=== PATIENT | female | born 1975 | race Caucasian/White ===

== ENCOUNTER 2018-11-02 09:12 | Emergency (ER) | payer BC ==
--- NOTE | 2018-11-02 09:41 | RAD REPORT ---
EXAM DESCRIPTION: CT - Ct Stroke Brain Wo Cont - 11/02/2018 9:35 am CLINICAL HISTORY: WEAKNESS CVA symptomology COMPARISON: HEAD BRAIN W O CONTRAST dated 05/10/2012 TECHNIQUE: All CT scans are performed using dose optimization technique as appropriate and may inclu de automated exposure control or mA/KV adjustment according to patient size. FINDINGS: No intracranial hemorrhage, hydrocephalus or extra-axial fluid collection.No areas of brai n edema or evidence of midline shift. The paranasal sinuses and mastoids are essentially clear. The calvarium is intact. IMPRESSION: No acute intracranial abnormality. If there is continued clinical concern for CVA, MR i maging of the brain would be recommended. The findings were discussed with ER physician Dr. Maya on 11/02/2017 at 9:36 a.m. by telephone.
[2018-11-02 09:50] LABS: Absolute Lymphocytes (CBC) 1.8 K/uL (0.7-4.9); Absolute Monocytes 0.4 K/uL (0.1-1.3); Absolute Neutrophil 3.4 K/uL (1.8-8.0); Basophils % 0.4 % (0-1.3); Eosinophils % 2.5 % (0-4.4); Hematocrit 43.5 % (36.0-45.0); Lymphocytes % 31.9 % (15.3-44.8); MPV 6.8 fL (7.6-11.3); Monocytes % 6.3 % (3.3-12.3); RBC Red Blood Cell Count 4.83 M/uL (3.86-4.86)
--- NOTE | 2018-11-02 09:57 | RAD REPORT ---
EXAM DESCRIPTION: RAD - Chest Single View - 11/02/2018 9:51 am CLINICAL HISTORY: Weakness Chest pain. COMPARISON: No comparisons FINDINGS: Portable technique limits examination quality. The lungs are grossly clear. The heart is normal in size. No displaced fractures. IMPRESSION: No acute intrathoracic process suspected.
[2018-11-02] MEDS ORDERED: ASPIRIN 81 MG CHEWABLE TABLET ONE (09:59)
--- NOTE | 2018-11-02 10:09 | ER ---
Nurse's Notes [facility] Name: Mackenzie Madrigal Age: 43 yrs Sex: Female : 1975 Arrival Date: 11/02/2018 Time: 09:14 Bed 13 Private MD: Mayda Mendieta Diagnosis: Sharma's palsy Presentation: 11/02 09:25 Presenting complaint: Patient states: woke up around 230 am and felt like the right iw side of her dace was numb and tingly, went back to sleep, woke up at 530 and looked at her face in the mirror, right side of face had an obvious droop, took her kids to school and facial droop got better but still felt a bit "off", also states she feels mild weakness in right hand, pt presents to ER negative arm drift. mild facial asymmetry on right. Last known well was 11 pm last night. 09:25 Method Of Arrival: Wheelchair iw 09:33 Transition of care: patient was not received from another setting of care. No acute iw neurological deficit is noted. Pre-hospital glucose is not applicable to this patient. Onset of symptoms was November 01, 2018 at 23:00. Risk Assessment: Do you want to hurt yourself or someone else? Patient reports no desire to harm self or others. Initial Sepsis Screen: Does the patient meet any 2 criteria? No. Patient's initial sepsis screen is negative. Does the patient have a suspected source of infection? No. Patient's initial sepsis screen is negative. Care prior to arrival: None. 09:33 Acuity: GONZALO 2 iw Triage Assessment: 09:57 The onset of the patients symptoms was November 02, 2018 at 03:00. 09:57 General: Appears in no apparent distress. comfortable. Neuro: Reports weakness in face. 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 - Social history:: Smoking status: Patient/guardian denies using tobacco, Patient uses alcohol. - Ebola Screening: : Patient negative for fever greater than or equal to 101.5 degrees Fahrenheit, and additional compatible Ebola Virus Disease symptoms Patient denies exposure to infectious person Patient denies travel to an Ebola-affected area in the 21 days before illness onset. Screenin:53 Abuse screen: Denies threats or abuse. Denies injuries from another. Nutritional hj screening: No deficits noted. Tuberculosis screening: No symptoms or risk factors identified. Fall Risk None identified. Assessment: 09:23 VAN Scoring: Arm Drift: Patients demonstrates NO arm weakness. Patient is VAN Negative. iw 09:30 Reassessment: pt transported to CT via stretcher, with Guillermo GALEANO. iw 09:42 General: Appears in no apparent distress. uncomfortable, Behavior is calm, cooperative, hj appropriate for age. Pain: Complains of pain in head. Neuro: Level of Consciousness is awake, alert, obeys commands, Oriented to person, place, time, situation, Appropriate for age. Cardiovascular: Capillary refill < 3 seconds Patient's skin is warm and dry. Respiratory: Airway is patent Respiratory effort is even, unlabored, Respiratory pattern is regular, symmetrical. GI: No signs and/or symptoms were reported involving the gastrointestinal system. : No signs and/or symptoms were reported regarding the genitourinary system. EENT: No signs and/or symptoms were reported regarding the EENT system. Derm: No signs and/or symptoms reported regarding the dermatologic system. Musculoskeletal: Reports facial pain and droop. 09:42 T-PA (Activase) Screening: Contraindications: Patient reports onset of signs and iw symptoms of stroke greater than 6 hours ago: Yes. 09:51 Patient has been NPO before screening. The patient is alert, and able to follow commands. The patient does not exhibit slurred or garbled speech. The patient is not exhibiting difficulty speaking. The patient is exhibiting difficulty understanding words. The patient is able to swallow own secretions with no drooling or need for suction. Patient tolerated one teaspoon of water. No drooling, immediate coughing, gurgling, or clearing of the throat was noted. The patient passed the bedside swallow screening. Oral medications may be given as ordered. Contact Physician for further diet orders. 09:53 Provider notified of bedside swallow screening results: Guillermo Trivedi RN. hj 10:53 Reassessment: Patient and/or family updated on plan of care and expected duration. Pain hj level reassessed. Patient is alert, oriented x 3, equal unlabored respirations, skin warm/dry/pink. Patient states feeling better. Patient states symptoms have improved. Vital Signs: 09:40 BP 148 / 97; Pulse 77; Resp 18; Temp 98.1(TE); Pulse Ox 99% on R/A; Weight 88.45 kg; hj Height 5 ft. 5 in. (165.10 cm); 10:04 BP 139 / 83; Pulse 71; Resp 17; Pulse Ox 100% on R/A; pc1 10:53 BP 130 / 69; Pulse 65; Resp 18; Pulse Ox 100% on R/A; hj 09:40 Body Mass Index 32.45 (88.45 kg, 165.10 cm) hj NIH Stroke Scale Scores: 09:56 NIHSS Score: 2 hj ED Course: 09:14 Patient arrived in ED. dl4 09:14 Mayda Mendieta MD is Private Physician. dl4 09:19 Dario Maya MD is Attending Physician. kdr 09:23 Guillermo Trivedi, RN is Primary Nurse. hj 09:34 Triage completed. iw 09:34 Arm band placed on. iw 09:35 CT Stroke Brain w/o Contrast In Process Unspecified. EDMS 09:46 Inserted saline lock: 20 gauge in right antecubital area, using aseptic technique. pc1 09:46 Initial lab(s) drawn, by ED staff, sent to lab. pc1 09:50 X-ray completed. Portable x-ray completed in exam room. Patient tolerated procedure jb2 well. 09:51 Stroke CXR 1 View In Process Unspecified. EDMS 09:57 Patient has correct armband on for positive identification. Placed in gown. Bed in low hj position. Call light in reach. Side rails up X 1. 10:07 Mayda Mendieta MD is Referral Physician. kdr 10:08 Damon Mendiola MD is Referral Physician. kdr 10:54 No provider procedures requiring assistance completed. IV discontinued, intact, hj bleeding controlled, No redness/swelling at site. Pressure dressing applied. Administered Medications: 09:51 Drug: Aspirin Chewable Tablet 324 mg Route: PO; pc1 10:56 Follow up: Response: No adverse reaction Point of Care Testing: Blood Glucose: 09:45 Blood Glucose: 103 mg/dL; pc1 Ranges: Outcome: 10:08 Discharge ordered by . kdr 10:54 Attestation : i agree with the assessment and notes of Giancarlo Lopez RN. hj 10:54 Discharged to home ambulatory. 10:54 Condition: stable 10:54 Discharge instructions given to patient, Instructed on discharge instructions, follow up and referral plans. medication usage, Demonstrated understanding of instructions, follow-up care, medications, Prescriptions given X 3. 11:04 Patient left the ED. NIH Stroke Scale - NIH Stroke Score Date: 11/02/2018 Time: 09:56 Total Score = 2 1a. Level of Consciousness (LOC) - 0(Alert) 1b. Level of Consciousness (LOC) (Year \\T\\ Age) - 0(Both) 1c. LOC Commands (Open \\T\\ Closes Eyes/Shower Attendant) - 0(Both) 2. Best Gaze (Lateral Gaze Paresis) - 0(Normal) 3. Visual Field Loss - 0(No visual loss) 4. Facial Palsy - 2(Partial paralysis) 5a. Left Arm: Motor (10-second hold) - 0(No drift) 5b. Right Arm: Motor (10-second hold) - 0(No drift) 6a. Left Leg: Motor (5-second hold - always test supine) - 0(No drift) 6b. Right Leg: Motor (5-second hold - always test supine) - 0(No drift) 7. Limb Ataxia (finger/nose \\T\\ heel/sáncehz - test with eyes open) - 0(Absent) 8. Sensory Loss (pinprick arms/legs/face) - 0(Normal) 9. Best Language: Aphasia (description/naming/reading) - 0(No aphasia) 10. Dysarthria (speech clarity - read or repeat words) - 0(Normal) 11. Extinction and Inattention (visual/tactile/auditory/spatial/personal) - 0(No abnormality) Initials: Signatures: Dispatcher [employer] Dario Prieto MD MD kdr Buechter, Jesse jb2 Jessica Dominguez, WALESKA RN Guillermo Welch RN RN Conner Nevarez dl4 Giancarlo Lopez [facility]
--- NOTE | 2018-11-02 10:10 | EDPHYS ---
Physician Documentation [facility] Name: Mackenzie Madrigal Age: 43 yrs Sex: Female : 1975 Arrival Date: 11/02/2018 Time: 09:14 Bed 13 Private MD: Mayda Mendieta ED Physician Dario Maya HPI: 11/02 09:28 This 43 yrs old Female presents to ER via Unassigned with complaints of S/S kdr of Possible Stroke. 09:28 The patient's problem is reported as a facial droop, on right, paresthesias, in right kdr side of face, weakness, in the right upper extremity, in the right side of face. Onset: The symptoms/episode began/occurred Last known well was about 11:00 PM yesterday evening. She awoke at least once during the night with apparent right face numbness and at one point she felt that her right face was drooping. Duration: This was a single incident, The episode is continuous, the symptoms became persistent just prior to arrival, Waxes and wanes. Context: the episode(s) was witnessed, by no one, symptoms became apparent upon waking, As noted above, occurred at home, occurred while the patient was asleep, Possible contributing factors include: None - No BCP or tobacco . The symptoms are alleviated by nothing. The symptoms are aggravated by nothing. 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 She had an episode of palpitations last week but none since. She can normally resolve these episodes with Valsalva . Severity of symptoms: At their worst the symptoms were mild in the emergency department the symptoms have improved mildly. Patient's baseline: Neuro: alert and fully oriented, Motor: no deficits, Ambulation: walks without assistance, Speech: normal, The patient has a previous history of. The patient has not experienced similar symptoms in the past. The patient has not recently seen a physician. 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 - Social history:: Smoking status: Patient/guardian denies using tobacco, Patient uses alcohol. - Ebola Screening: : Patient negative for fever greater than or equal to 101.5 degrees Fahrenheit, and additional compatible Ebola Virus Disease symptoms Patient denies exposure to infectious person Patient denies travel to an Ebola-affected area in the 21 days before illness onset. ROS: 09:28 Constitutional: Negative for fever, chills, and weight loss, Eyes: Negative for injury, kdr pain, redness, and discharge, ENT: Negative for injury, pain, and discharge, Neck: Negative for injury, pain, and swelling, Cardiovascular: Negative for chest pain, palpitations, and edema, Respiratory: Negative for shortness of breath, cough, wheezing, and pleuritic chest pain, Abdomen/GI: Negative for abdominal pain, nausea, vomiting, diarrhea, and constipation, Back: Negative for injury and pain, : Negative for injury, bleeding, discharge, and swelling, MS/Extremity: Negative for injury and deformity, Skin: Negative for injury, rash, and discoloration, Psych: Negative for depression, anxiety, suicide ideation, homicidal ideation, and hallucinations, Allergy/Immunology: Negative for hives, rash, and allergies, Endocrine: Negative for neck swelling, polydipsia, polyuria, polyphagia, and marked weight changes, Hematologic/Lymphatic: Negative for swollen nodes, abnormal bleeding, and unusual bruising. 09:28 Neuro: Positive for numbness, speech changes, tingling, weakness, Negative for altered mental status, dizziness, gait disturbance, headache, hearing loss, loss of consciousness, seizure activity, syncope, near syncope, visual changes. Exam: 09:28 Constitutional: This is a well developed, well nourished patient who is awake, alert, kdr and in no acute distress. Head/Face: Normocephalic, atraumatic. The right face seems to have a sliight droop Eyes: Pupils equal round and reactive to light, extra-ocular motions intact. Lids and lashes normal. Conjunctiva and sclera are non-icteric and not injected. Cornea within normal limits. Periorbital areas with no swelling, redness, or edema. ENT: Nares patent. No nasal discharge, no septal abnormalities noted. Tympanic membranes are normal and external auditory canals are clear. Oropharynx with no redness, swelling, or masses, exudates, or evidence of obstruction, uvula midline. Mucous membranes moist. Neck: Trachea midline, no thyromegaly or masses palpated, and no cervical lymphadenopathy. Supple, full range of motion without nuchal rigidity, or vertebral point tenderness. No Meningismus. Chest/axilla: Normal chest wall appearance and motion. Nontender with no deformity. No lesions are appreciated. Cardiovascular: Regular rate and rhythm with a normal S1 and S2. No gallops, murmurs, or rubs. Normal PMI, no JVD. No pulse deficits. Respiratory: Lungs have equal breath sounds bilaterally, clear to auscultation and percussion. No rales, rhonchi or wheezes noted. No increased work of breathing, no retractions or nasal flaring. Abdomen/GI: Soft, non-tender, with normal bowel sounds. No distension or tympany. No guarding or rebound. No evidence of tenderness throughout. Back: No spinal tenderness. No costovertebral tenderness. Full range of motion. Skin: Warm, dry with normal turgor. Normal color with no rashes, no lesions, and no evidence of cellulitis. MS/ Extremity: Pulses equal, no cyanosis. Neurovascular intact. Full, normal range of motion. Neuro: Awake and alert, GCS 15, oriented to person, place, time, and situation. Cranial nerves II-XII grossly intact. Motor strength 5/5 in all extremities. Sensory grossly intact. Cerebellar exam normal. Normal gait. Psych: Awake, alert, with orientation to person, place and time. Behavior, mood, and affect are within normal limits. 11:08 Radiologist reports: Negative per Dr. Block [facility] Vital Signs: 09:40 BP 148 / 97; Pulse 77; Resp 18; Temp 98.1(TE); Pulse Ox 99% on R/A; Weight 88.45 kg; hj Height 5 ft. 5 in. (165.10 cm); 10:04 BP 139 / 83; Pulse 71; Resp 17; Pulse Ox 100% on R/A; pc1 10:53 BP 130 / 69; Pulse 65; Resp 18; Pulse Ox 100% on R/A; hj 09:40 Body Mass Index 32.45 (88.45 kg, 165.10 cm) NIH Stroke Scale Scores: 09:56 NIHSS Score: 2 hj MDM: 10:08 Patient medically screened. kdr 10:21 Data reviewed: vital signs, nurses notes, lab test result(s), radiologic studies. kdr Counseling: I had a detailed discussion with the patient and/or guardian regarding: the historical points, exam findings, and any diagnostic results supporting the discharge/admit diagnosis, lab results, radiology results, the need for outpatient follow up. ED course: The patient clearly had right forehead weakness and difficulty closing her right eye with slight right facial droops and paresthesia on right side. The patient was left handed and was naturally slightly more weak on the right then left. She had no other significant s/s. 11/02 09:24 Order name: Basic Metabolic Panel; Complete Time: 11:09 em11/02 09:24 Order name: CBC with Diff; Complete Time: 09:58 em11/02 09:24 Order name: Protime (+inr); Complete Time: 11:09 em1 11/02 09:24 Order name: Ptt, Activated; Complete Time: 11:09 em11/02 09:24 Order name: CT Stroke Brain w/o Contrast; Complete Time: 09:58 em11/02 10:13 Order name: Glucose, Ancillary Testing; Complete Time: 11:09 EDMS 11/02 09:24 Order name: Stroke CXR 1 View; Complete Time: 09:58 em1 11/02 09:24 Order name: EKG; Complete Time: 09:25 em11/02 09:24 Order name: Accucheck; Complete Time: :46 em11/02 09:24 Order name: Cardiac monitoring; Complete Time: : em11/02 09:24 Order name: EKG - Nurse/Tech; Complete Time: :46 em11/02 09:24 Order name: IV Saline Lock; Complete Time: :46 em11/02 09:24 Order name: Labs collected and sent; Complete Time: :46 em11/02 09:24 Order name: NPO; Complete Time: : em11/02 09:24 Order name: O2 Per Protocol; Complete Time: :26 em11/02 09:24 Order name: O2 Sat Monitoring; Complete Time: : em11/02 09:24 Order name: Stroke Swallow Screen; Complete Time: 09:51 em1 Administered Medications: 09:51 Drug: Aspirin Chewable Tablet 324 mg Route: PO; pc1 10:56 Follow up: Response: No adverse reaction hj Point of Care Testing: Blood Glucose: :45 Blood Glucose: 103 mg/dL; pc1 Ranges: Critical Glucose Levels:Adult <50 mg/dl or >400 mg/dl <40 mg/dl or >180 mg/dl Disposition: 11/02/18 10:08 Discharged to Home. Impression: Sharma's palsy. - Condition is Stable. - Discharge Instructions: Sharma Palsy, Adult. - Prescriptions for Prednisone 20 mg Oral Tablet - take 3 tablets by ORAL route once daily for 4 days Use this prescription first then the medrol dose pack with the tapering dose.; 12 tablet. Valtrex 500 mg Oral Tablet - take 1 tablet by ORAL route every 12 hours for 5 days; 10 tablet. Medrol (Abilio) 4 mg Oral Tablets, Dose Pack - take 1 tablet by ORAL route as directed - follow package instructions - use this after the prescription for 60 mg each day for four (4) days.; 1 packet. - Medication Reconciliation Form, Thank You Letter, Antibiotic Education form. - Follow up: Mayda Mendieta MD; When: 1 - 2 days; Reason: If symptoms return, Further diagnostic work-up, Recheck today's complaints, Continuance of care, Re-evaluation by your physician. Follow up: Damon Mendiola MD; When: 1 - 2 days; Reason: If symptoms return, Further diagnostic work-up, Recheck today's complaints, Continuance of care, Re-evaluation by your physician. - Problem is new. - Symptoms are unchanged. NIH Stroke Scale - NIH Stroke Score Date: 11/02/2018 Time: 09:56 Total Score = 2 1a. Level of Consciousness (LOC) - 0(Alert) 1b. Level of Consciousness (LOC) (Year \T\ Age) - 0(Both) 1c. LOC Commands (Open \T\ Closes Eyes/Early Education Teacher) - 0(Both) 2. Best Gaze (Lateral Gaze Paresis) - 0(Normal) 3. Visual Field Loss - 0(No visual loss) 4. Facial Palsy - 2(Partial paralysis) 5a. Left Arm: Motor (10-second hold) - 0(No drift) 5b. Right Arm: Motor (10-second hold) - 0(No drift) 6a. Left Leg: Motor (5-second hold - always test supine) - 0(No drift) 6b. Right Leg: Motor (5-second hold - always test supine) - 0(No drift) 7. Limb Ataxia (finger/nose \T\ heel/sánchez - test with eyes open) - 0(Absent) 8. Sensory Loss (pinprick arms/legs/face) - 0(Normal) 9. Best Language: Aphasia (description/naming/reading) - 0(No aphasia) 10. Dysarthria (speech clarity - read or repeat words) - 0(Normal) 11. Extinction and Inattention (visual/tactile/auditory/spatial/personal) - 0(No abnormality) Initials: hj Signatures: Dispatcher [employer] EDMS Dario Maya MD MD kdr Martinez, Eric em1 Guillermo Trivedi RN RN hj Giancarlo Lopez Corrections: (The following items were deleted from the chart) 11:04 10:08 11/02/2018 10:08 Discharged to Home. Impression: Sharma's palsy. Condition hj is Stable. Forms are Medication Reconciliation Form, Thank You Letter, Antibiotic Education, Prescription Opioid Use. Follow up: Mayda Mendieta; When: 1 - 2 days; Reason: If symptoms return, Further diagnostic work-up, Recheck today's complaints, Continuance of care, Re-evaluation by your physician. Follow up: Damon Mendiola; When: 1 - 2 days; Reason: If symptoms return, Further diagnostic work-up, Recheck today's complaints, Continuance of care, Re-evaluation by your physician. Problem is new. Symptoms are unchanged. kdr
[2018-11-02 10:14] LABS: Potassium 3.9 mmol/L (3.5-5.1)
[2018-11-02 10:57] LABS: Protime INR 1.04
--- NOTE | 2018-11-02 12:34 | EKG ---
Test Date: 2018-11-02 Test Time: 09:41:08 Cobol Programmer: GREG MEASUREMENT RESULTS: Intervals: Rate: 72 VA: 150 QRSD: 84 QT: 398 QTc: 435 [place]: P: 62 VA: 150 QRS: 66 T: 28 INTERPRETIVE STATEMENTS: Normal sinus rhythm Normal ECG Compared to ECG 05/19/2012 14:51:42 No significant changes Electronically Signed On 11-02-18 12:33:27 FINANCIAL ASSISTANT by Missael Shields
== END 2018-11-02 11:04 | disposition home or self-care (01) ==
LOC: ER 09:12
DX: G51.0 Bell's palsy (principal); Z88.0 Allergy status to penicillin
CPT/HCPCS: 36415; 70450; 71045; 80048; 82962; 85025; 85610; 85730; 93005; 99284